=== PATIENT | female | born 2005 | race Caucasian/White ===

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

== ENCOUNTER 2024-08-30 00:14 | Emergency (ER) | payer BC, MEDICAID, SELFPAY ==
[2021-07-27 11:29] VITALS: BP 128/71; BMI 38.6
[2024-08-30 00:48] VITALS: BP 143/85; PULSE 92; RESP 18; TEMP 37.1; O2SAT 99; BMI 30.5
--- NOTE | 2024-08-30 00:59 | W.ED.URI ---
Documented by User: ASIM Mayer 08/31/24 17:27 HPI - URI/Sore Throat General: Chief Complaint: Upper Respiratory Infection Stated Complaint: Sore Throat Fever Time Seen by Provider: 08/30/24 00:58 Source: patient Mode of arrival: ambulatory Limitations: no limitations History of Present Illness: Patient is a 19-year-old female presenting to the emergency department with multiple upper respiratory complaints. States that for 3 days she has been dealing with cough, fevers, bilateral ear pain, chills, body aches, sore throat, shortness of breath. Reports multiple sick contact exposure to COVID/flu as well as to strep. She is reporting history of asthma, no other pertinent past medical history. MD elicited complaint: fever, cough and sore throat Onset (ago): day(s) Consistency: constant Severity: moderate Context: sick contacts Associated symptoms: Reports chills, ear or mastoid pain and fever(s); Deny abdominal pain, chest pain, diarrhea, headache(s), nausea or vomiting Treatments prior to arrival: acetaminophen and ibuprofen Related Data Previous Rx's Medication Instructions Recorded amoxicillin 500 mg capsule 1,000 mg (2 x 500 mg) PO Q8H 10 10/20/22 days #60 caps ciprofloxacin 0.3 %-dexamethasone 4 drp otic (ear) BID 7 days #7.5 mL 10/20/22 0.1 % ear drops,suspension (Ciprodex) fluticasone propionate 50 1 spray intranasal BID 7 days 10/20/22 mcg/actuation nasal #15.8 mL spray,suspension hydroxyzine HCl 10 mg tablet 5 mg (1/2 x 10 mg) PO TID PRN 10/20/22 itching #30 tabs cholecalciferol (vitamin D3) 50 50 mcg PO DAILY 6 weeks #42 caps 10/22/22 mcg (2,000 unit) capsule cyclobenzaprine 10 mg tablet 10 mg PO TID #14 tabs 11/20/22 diclofenac sodium 1 % topical gel 4 g topical QID #100 grams 11/20/22 (Voltaren Arthritis Pain) naproxen 500 mg tablet 500 mg PO BID PRN pain #20 tabs 11/20/22 Allergies Allergy/AdvReac Type Severity Reaction Status Date / Time No Known Allergies Allergy Verified 12/21/22 14:11 Review of Systems General: Reports: 10 or more systems reviewed and unremarkable except in HPI and below Const: Reports: fever(s), chills and body aches; Denies: fatigue Eyes: Denies: change in vision ENMT: Reports: ear or mastoid pain; Denies: throat pain or nasal discharge Card: Denies: chest pain, palpitations, swelling of feet/ankles or lightheadedness Resp: Reports: dyspnea and non-productive cough; Denies: productive cough or wheezing GI: Denies: abdominal pain, nausea, vomiting, diarrhea or constipation : Denies: flank pain, difficulty voiding, dysuria or urinary frequency Musc: Denies: neck pain, back pain or joint pain Skin/Breast: Denies: rash Neuro: Denies: headache(s), numbness in extremities or weakness in extremities PFSH ED PFSH: Medical History Major depressive disorder, recurrent severe without psychotic features Chronic post-traumatic stress disorder Social History Smoking and tobacco/nicotine status: never used tobacco/nicotine Female Reproductive History: Date of last menstrual period: 08/12/24 Physical Exam Const: COMMON NORMALS: no acute distress and healthy appearing GENERAL APPEARANCE: cooperative, comfortable and well developed HENMT: COMMON NORMALS: normocephalic, atraumatic, hearing grossly normal bilaterally, external ears normal, EAC's normal, TM's normal bilaterally, Normal external nose present and Normal nasal mucous membranes and turbinates present HEAD & SCALP: normal to inspection, normocephalic and atraumatic FACE & SINUS: normal facial exam and sinuses nontender NOSE: Normal external nose present, Normal nares present, No nasal polyps present and Normal nasal mucous membranes and turbinates present EXTERNAL EAR: Yes external ears normal EXTERNAL AUDITORY CANAL: EAC's normal TYMPANIC MEMBRANE: TM's normal bilaterally MOUTH: Normal oral and palatal mucosa present THROAT: posterior oropharynx normal and abnormal tonsil bilateral hypertrophy Eye: COMMON NORMALS: EOMs intact bilaterally, conjunctivae normal and normal visual salcedo by confrontation GENERAL EYE: appearance normal, both eyes and all related structures CONJUNCTIVA: Yes conjunctivae normal Neck/C-Spine: COMMON NORMALS: full ROM, no lymphadenopathy, supple and no meningeal signs GENERAL: Yes normal visual inspection Chest: COMMONS NORMALS: normal inspection of the chest Resp: COMMON NORMALS: normal respiratory effort and clear to auscultation bilaterally EFFORT & INSPECTION: Yes able to speak in complete sentences AUSCULTATION: clear to auscultation bilaterally Cardio: COMMON NORMALS: regular rate, regular rhythm, S1 normal heart sound present and S2 normal heart sound present RATE: regular rate RHYTHM: regular rhythm HEART SOUNDS: S1 normal heart sound present, S2 normal heart sound present, no gallops, no murmurs and no rubs Extremity: COMMON NORMALS: normal to inspection, full ROM and capillary refill normal Neuro: MENINGEAL SIGNS: Yes no meningeal signs Skin: COMMON NORMALS: no rashes or lesions noted GENERAL SKIN EXAM: no rashes or lesions noted Course Vital Signs: Vital signs: Vital Signs Temperature 98.7 F 08/30/24 00:48 Pulse Rate 89 08/30/24 02:52 Respiratory Rate 18 08/30/24 00:48 Blood Pressure 138/92 08/30/24 02:52 Pulse Oximetry 94 08/30/24 02:52 Oxygen Delivery Me thod Room Air 08/30/24 00:48 MDM - URI/Sore Throat Lab Data Radiology Impressions Chest X-Ray 08/30/24 02:06 IMPRESSION: No acute findings. Laboratory Results Coronavirus (PCR) Negative (Negative) 08/30/24 00:57 Influenza A (PCR) Negative (Negative) 08/30/24 00:57 Influenza Type B (PCR) Negative (Negative) 08/30/24 00:57 RSV (PCR) Negative (Negative) 08/30/24 00:57 Group A Strep Rapid Negative (Negative) 08/30/24 00:57 All radiology interpretation(s) finalized by discharge Discharge Plan Discharge Patient Disposition: Home Clinical Impression: Upper respiratory infection Qualifiers: URI type: unspecified URI Qualified Code(s): J06.9 - Acute upper respiratory infection, unspecified Condition: Stable Prescriptions: No Action amoxicillin 500 mg capsule 1,000 mg PO Q8H 10 Days Qty: 60 0RF Rx Instructions: 2 caps by mouth three times daily x 10 days ciprofloxacin-dexamethasone [Ciprodex] 0.3-0.1 % drops,suspension 4 drp otic (ear) BID 7 Days Qty: 7.5 0RF Rx Instructions: 4 drops twice daily to affected ear fluticasone propionate 50 mcg/actuation spray,suspension 1 spray intranasal BID 7 Days Qty: 15.8 0RF Rx Instructions: administer into each nostril twice daily; use sterile nasal saline first hydroxyzine HCl 10 mg tablet 5 mg PO TID PRN (Reason: itching) Qty: 30 0RF Rx Instructions: Take 1/2 to 1 tablet every 6-8 hours as needed for anxiety cholecalciferol (vitamin D3) 50 mcg (2,000 unit) capsule 50 mcg PO DAILY 42 Days Qty: 42 0RF Rx Instructions: 1 cap by mouth daily x 42 days cyclobenzaprine 10 mg tablet 10 mg PO TID Qty: 14 0RF naproxen 500 mg tablet 500 mg PO BID PRN (Reason: pain) Qty: 20 0RF Voltaren Arthritis Pain 1 % gel 4 g topical QID Qty: 100 0RF Rx Instructions: apply to single knee, ankle, foot; for foot includes sole/toes/top of foot Discharge Orders: Discharge ED (Routine); Ordered 08/30/24 Ordered By: Jarek Otero Patient Instructions: Upper Respiratory Infection - Adult Activity Restrictions/Additional Instructions: Thank you for choosing [facility] for your healthcare needs today. Please realize that you were seen in the emergency department and that we are providing you with an emergency medical screening exam and this may not be a complete and all exclusive of all testing and/or medical workup we may need to determine your element or severity of your illness. It is very important that you follow-up as instructed with your primary care provider or specialist for the additional evaluation and to discuss your medical treatment plan. You may return to the emergency department should you have concerns or if your condition changes or worsens in any way. 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[employer] Fwd Documented by User: Jarek Otero DO 08/30/24 02:46 HPI - URI/Sore Throat General: Chief Complaint: Upper Respiratory Infection Stated Complaint: Sore Throat Fever Time Seen by Provider: 08/30/24 00:58 Related Data Previous Rx's Medication Instructions Recorded amoxicillin 500 mg capsule 1,000 mg (2 x 500 mg) PO Q8H 10 10/20/22 days #60 caps ciprofloxacin 0.3 %-dexamethasone 4 drp otic (ear) BID 7 days #7.5 mL 10/20/22 0.1 % ear drops,suspension (Ciprodex) fluticasone propionate 50 1 spray intranasal BID 7 days 10/20/22 mcg/actuation nasal #15.8 mL spray,suspension hydroxyzine HCl 10 mg tablet 5 mg (1/2 x 10 mg) PO TID PRN 10/20/22 itching #30 tabs cholecalciferol (vitamin D3) 50 50 mcg PO DAILY 6 weeks #42 caps 10/22/22 mcg (2,000 unit) capsule cyclobenzaprine 10 mg tablet 10 mg PO TID #14 tabs 11/20/22 diclofenac sodium 1 % topical gel 4 g topical QID #100 grams 11/20/22 (Voltaren Arthritis Pain) naproxen 500 mg tablet 500 mg PO BID PRN pain #20 tabs 11/20/22 Allergies Allergy/AdvReac Type Severity Reaction Status Date / Time No Known Allergies Allergy Verified 12/21/22 14:11 [facility] ED PFSH: Medical History Major depressive disorder, recurrent severe without psychotic features Chronic post-traumatic stress disorder Social History Smoking and tobacco/nicotine status: never used tobacco/nicotine Course Vital Signs: Vital signs: Vital Signs Temperature 98.7 F 08/30/24 00:48 Pulse Rate 89 08/30/24 02:52 Respiratory Rate 18 08/30/24 00:48 Blood Pressure 138/92 08/30/24 02:52 Pulse Oximetry 94 08/30/24 02:52 Oxygen Delivery Me thod Room Air 08/30/24 00:48 MDM - URI/Sore Throat Medical Decision Making Patient care turned over myself at shift change, waiting for lab work to come back, lab work showed coronavirus, influenza, RSV, group A strep all negative, preliminary report on the chest x-ray by myself was negative for pneumonia. These results was discussed with the patient. Patient be discharged home with diagnosis of URI, Lab Data Radiology Impressions Chest X-Ray 08/30/24 02:06 IMPRESSION: No acute findings. Laboratory Results Coronavirus (PCR) Negative (Negative) 08/30/24 00:57 Influenza A (PCR) Negative (Negative) 08/30/24 00:57 Influenza Type B (PCR) Negative (Negative) 08/30/24 00:57 RSV (PCR) Negative (Negative) 08/30/24 00:57 Group A Strep Rapid Negative (Negative) 08/30/24 00:57 Discharge Plan Discharge Patient Disposition: Home Clinical Impression: Upper respiratory infection Qualifiers: URI type: unspecified URI Qualified Code(s): J06.9 - Acute upper respiratory infection, unspecified Condition: Stable Prescriptions: No Action amoxicillin 500 mg capsule 1,000 mg PO Q8H 10 Days Qty: 60 0RF Rx Instructions: 2 caps by mouth three times daily x 10 days ciprofloxacin-dexamethasone [Ciprodex] 0.3-0.1 % drops,suspension 4 drp otic (ear) BID 7 Days Qty: 7.5 0RF Rx Instructions: 4 drops twice daily to affected ear fluticasone propionate 50 mcg/actuation spray,suspension 1 spray intranasal BID 7 Days Qty: 15.8 0RF Rx Instructions: administer into each nostril twice daily; use sterile nasal saline first hydroxyzine HCl 10 mg tablet 5 mg PO TID PRN (Reason: itching) Qty: 30 0RF Rx Instructions: Take 1/2 to 1 tablet every 6-8 hours as needed for anxiety cholecalciferol (vitamin D3) 50 mcg (2,000 unit) capsule 50 mcg PO DAILY 42 Days Qty: 42 0RF Rx Instructions: 1 cap by mouth daily x 42 days cyclobenzaprine 10 mg tablet 10 mg PO TID Qty: 14 0RF naproxen 500 mg tablet 500 mg PO BID PRN (Reason: pain) Qty: 20 0RF Voltaren Arthritis Pain 1 % gel 4 g topical QID Qty: 100 0RF Rx Instructions: apply to single knee, ankle, foot; for foot includes sole/toes/top of foot Discharge Orders: Discharge ED (Routine); Ordered 08/30/24 Ordered By: Jarek Otero Patient Instructions: Upper Respiratory Infection - Adult Activity Restrictions/Additional Instructions: Thank you for choosing [facility] for your healthcare needs today. Please realize that you were seen in the emergency department and that we are providing you with an emergency medical screening exam and this may not be a complete and all exclusive of all testing and/or medical workup we may need to determine your element or severity of your illness. It is very important that you follow-up as instructed with your primary care provider or specialist for the additional evaluation and to discuss your medical treatment plan. You may return to the emergency department should you have concerns or if your condition changes or worsens in any way. 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
[2024-08-30 01:17] LABS: Rapid Strep A Test Negative (Negative)
[2024-08-30 01:48] LABS: Covid PCR NEGATIVE (Negative); Influenza A NEGATIVE (Negative); Influenza B NEGATIVE (Negative); Respiratory Syncytial Virus Ce NEGATIVE (Negative)
[2024-08-30 01:52] VITALS: BP 131/80; PULSE 91; O2SAT 98
--- NOTE | 2024-08-30 02:06 | XRR_ITS ---
PROCEDURE INFORMATION: Exam: XR Chest Exam date and time: 08/30/2024 2:14 AM Age: 19 years old Clinical indication: Dyspnea and fever and shortness of breath TECHNIQUE: Imaging protocol: Radiologic exam of the chest. Views: 1 view. COMPARISON: CR XR ribs RT mn 3V w [id number] 11/20/2022 12:26 AM FINDINGS: Lungs: Unremarkable. No consolidation. Few scattered small nodular structures within both lungs probably reflective of vessels or a few associated granulomatous calcifications. Pleural spaces: Unremarkable. No pleural effusion. No pneumothorax. Heart/Mediastinum: Unremarkable. No cardiomegaly. Bones/joints: Unremarkable. XR/XR chest 1V portable [id number] IMPRESSION: No acute findings.
[2024-08-30 02:52] VITALS: BP 138/92; PULSE 89; O2SAT 94
== END 2024-08-30 02:54 | disposition home or self-care (01) ==
PROVIDERS: Emergency Provider Physician Assistant
DX: J06.9 Acute upper respiratory infection, unspecified (principal); Z11.52 Encounter for screening for COVID-19
CPT/HCPCS: 71045; 87081; 87637; 87880; 99284